=== PATIENT | male | born 1970 | race Caucasian/White ===

== ENCOUNTER → 2017-11-11 | Outpatient (CLI) | payer BC ==
[2017-11-11 13:25] LABS: HEMOGLOBIN A1C 7.5 % (4.5-5.6)
[2017-11-11 13:50] LABS: ALT/SGPT 37 U/L (12-78); BLOOD UREA NITROGEN 13 mg/dl (7-18); CALCIUM 8.7 mg/dl (8.5-10.1); CARBON DIOXIDE 24 mmol/L (21-32); CHOLESTEROL 137 mg/dl (0-200); CREATININE 1.08 mg/dl (0.60-1.40); GLUCOSE 205 mg/dl (70-99); LDL CHOLESTEROL (DIRECT) 92 mg/dl; POTASSIUM 4.2 mmol/L (3.5-5.1); SODIUM 136 mmol/L (136-145)
== END | disposition home or self-care (01) ==
LOC: C.LABMFLN 07:23
PROVIDERS: ATTEND Family Medicine
DX: E11.9 Type 2 diabetes mellitus without complications (principal)